=== PATIENT | male | born 1950 ===

== ENCOUNTER → 2024-05-05 19:46 | Outpatient (REF) | payer MEDICARE, SELFPAY | LOC: MRI 3T 19:46 | PROVIDERS: ATTENDING PHYSICIAN Physician Assistant Medical; FAMILY PHYSICIAN Physician Assistant Medical | DX: R22.31 Localized swelling, mass and lump, right upper limb (principal); M79.641 Pain in right hand | CPT/HCPCS: 73220; A9575 ==